=== PATIENT | female | born 1970 | race Two or more races ===

== ENCOUNTER → 2025-04-03 | Outpatient (CLI) | payer BC, SELFPAY ==
[2025-04-03 09:43] LABS: Basophils # (Auto) 0.1 Thou/mm3 (0.0-0.2); Basophils % (Auto) 1 % (0-2.5); Eosinophils # (Auto) 0.2 Thou/mm3 (0.0-0.5); Eosinophils % (Auto) 3 % (0-10); Hematocrit 42.8 % (36.0-46.0); Hemoglobin 14.0 g/dL (12.0-16.0); Immature Granulocytes Auto 0.04 Thou/mm3 (0.00-0.00); Lymphocytes # (Auto) 3.3 Thou/mm3 (1.0-4.8); Lymphocytes % (Auto) 40 % (10-50); Mean Corpuscular HGB Conc 32.7 g/dl (31.0-37.0); Mean Corpuscular Hemoglobin 28.0 pg (25.0-35.0); Mean Corpuscular Volume 86 fL (80-100); Monocytes # (Auto) 0.5 Thou/mm3 (0.0-0.8); Monocytes % (Auto) 6 % (0-12); Neutrophils # (Auto) 4.1 Thou/mm3 (1.8-7.7); Neutrophils % (Auto) 50 % (37-80); Nucleated Red Blood Cell # 0.00 Thou/mm3 (0.00-0.00); Nucleated Red Blood Cell % 0 /100 WBC (0); Platelet Count 411 Thou/mm3 (140-440); RDW Standard Deviation 41.5 fL (36.4-46.3); Red Blood Count 5.00 Miln/mm3 (4.00-5.20); White Blood Count 8.2 Thou/mm3 (3.6-11.0)
[2025-04-03 09:50] LABS: Glucose Estimated Average 137 mg/dL (80-131); Hemoglobin A1C 6.4 % Hgb (4.8-6.0)
[2025-04-03 09:53] LABS: Alanine Aminotransferase 39 U/L (10-49); Albumin, Serum 4.4 gm/dL (3.5-5.0); Albumin/Globulin Ratio 1.6 (1.2-2.2); Alkaline Phosphatase 91 U/L (46-116); Anion Gap 12 (7-16); Aspartate Amino Transferase 32 U/L (0-34); BUN/Creatinine Ratio 13 Ratio (12-20); Bilirubin,Total 0.4 mg/dL (0.3-1.2); Blood Urea Nitrogen 9 mg/dL (9-23); C-Reactive Protein 0.9 mg/dL (0.0-0.9); Calcium 9.4 mg/dL (8.3-10.6); Calcium (Corrected) 9.4 mg/dL (8.5-10.1); Carbon Dioxide 26.5 mMol/L (20.0-31.0); Cardiac Risk Estimate 3.6 RATIO (3.7-5.6); Chloride 103 mMol/L (98-107); Cholesterol 224 mg/dL (132-200); Creatinine (Component) 0.7 mg/dL (0.6-1.3); Globulin 2.7 gm/dL (2.3-3.5); Glucose 144 mg/dL (74-106); HDL Cholesterol 62 mg/dL (40-60); LDL Cholesterol,Calculated 133 mg/dL (0-130); Osmolality,Calculated 282 (275-295); Potassium 3.6 mMol/L (3.4-5.1); Sodium 141 mMol/L (136-145); Total Protein 7.1 gm/dL (5.7-8.2); Triglycerides 147 mg/dL (30-150); eGFR > 60 See Note
[2025-04-03 10:36] LABS: Sed Rate (ESR) 46 mm/hr (0-30)
[2025-04-09 06:52] LABS: ANA Screen, IFA NEGATIVE (NEGATIVE)
== END | disposition home or self-care (01) ==
LOC: COPL 08:03
PROVIDERS: PCP Internal Medicine; Referring Provider Internal Medicine; Visit Provider Internal Medicine
DX: I10 Essential (primary) hypertension (principal); E78.5 Hyperlipidemia, unspecified; E66.01 Morbid (severe) obesity due to excess calories; G47.33 Obstructive sleep apnea (adult) (pediatric); J45.909 Unspecified asthma, uncomplicated; M54.50 Low back pain, unspecified; M15.0 Primary generalized (osteo)arthritis
CPT/HCPCS: 36415; 80053; 80061; 83036; 85025; 85652; 86038; 86140

== ENCOUNTER → 2025-04-07 | Outpatient (CLI) | payer BC, SELFPAY ==
--- NOTE | 2025-04-07 | XR_ITS ---
Examination: Screening digital mammography, bilateral Computer aided detection 3-D breast Tomosynthesis, bilateral Date and time of exam: April 07, 2025, 0941 hours, compared to mammograms dating to February 09, 2015 Indication: Screening Technique: Nonmagnified MLO, CC views of the breasts to been obtained, reconstructed from 3-D Tomosynthesis images. R2 computer aided detection program utilized for evaluation of suspicious masses and/or abnormal calcifications. 3-D Tomosynthesis images obtained. Findings: Scattered areas of fibroglandular density. Intact implants No interval suspicious masses Impression: BI-RADS category II: Benign Findings. Recommend 1 year follow-up mammogram.
--- NOTE | 2025-04-07 08:26 | XR_ITS ---
Examination: Breast ultrasound complete, bilateral Date and time of exam: April 07, 2025, 0905 hours INDICATION: Breast pain several weeks, family history breast cancer Technique: Real-time grayscale ultrasonographic imaging bilateral breasts, including all 4 quadrants as well as nipple retroareolar and axillary regions. Findings: Sonographic images right breast 1:00 cyst 7 x 5 mm No solid nodules Sonographic images left breast 1:00 cyst 13 x 9 mm 3:00 cyst 10 x 4 mm No solid nodules IMPRESSION: BI-RADS Category 2: Benign findings
== END | disposition home or self-care (01) ==
PROVIDERS: PCP Internal Medicine; Referring Provider Internal Medicine; Visit Provider Internal Medicine
DX: Z12.31 Encounter for screening mammogram for malignant neoplasm of breast (principal); R92.323 Mammographic fibroglandular density, bilateral breasts; N64.4 Mastodynia; Z85.3 Personal history of malignant neoplasm of breast
CPT/HCPCS: 76641; 77063; 77067

== ENCOUNTER 2025-05-26 13:30 | Emergency (ER) | payer BC, SELFPAY ==
[2025-05-26 13:46] VITALS: BP 161/121; PULSE 125; TEMP 36.6; O2SAT 99
--- NOTE | 2025-05-26 13:49 | PD.EDHA ---
ED Headache RME/HPI General Chief Complaint: Epistaxis/Nasal Foreign Body Stated Complaint: NOSEBLEED, HEADACHE, N/V Time Seen by Provider: 05/26/25 13:52 Arrival date/time: 05/26/25 13:30 RME / HPI RME / HPI Narrative: See [facility] for Dr. Manriquez's HPI Documentation. Related Data Home Medications ?Medication ?Instructions ?Recorded ?Confirmed amlodipine 5 mg tablet 5 mg PO QDAY 09/24/21 11/22/21 albuterol 90 mcg/actuation aerosol 90 mcg inhalation BID PRN 11/10/21 11/22/21 inhaler Shortness Of Breath Or Wheezing azilsartan medoxomil 40 mg tablet 40 mg PO QDAY 11/10/21 11/22/21 (Edarbi) Previous Rx's ?Medication ?Instructions ?Recorded tamsulosin 0.4 mg capsule 0.4 mg PO QDAY #30 caps 11/11/21 tramadol 50 mg tablet 50 mg PO Q6H PRN pain #20 tabs 11/11/21 tramadol 50 mg tablet 50 mg PO Q6H PRN pain #20 tabs 11/11/21 furosemide 40 mg tablet (Lasix) 40 mg PO QAM #14 tabs 03/15/22 benzonatate 100 mg capsule 100 mg PO TID #14 caps 03/21/23 rizatriptan 10 mg disintegrating 10 mg PO Q2H PRN migraine headache 04/04/23 tablet (Maxalt-R D INTERNSHIP) #20 tabs clonidine HCl 0.1 mg tablet 0.1 mg PO BID #60 tabs 05/26/25 nitrofurantoin 100 mg PO BID #14 caps 05/26/25 monohydrate/macrocrystals 100 mg capsule (Macrobid) tramadol 50 mg tablet 50 mg PO Q8H PRN pain #20 tabs 05/26/25 Allergies Allergy/AdvReac Type Severity Reaction Status Date / Time acetaminophen Allergy Mild Itching Verified 05/26/25 13:33 honey Allergy Mild Rash Verified 05/26/25 13:33 Review of Systems Review of Systems Systems Reviewed: All systems reviewed, normal except as documented Past Medical History Past Medical History NEUROLOGIC: Positive Neurological Disorders (Vertigo) and Migraine CARDIAC: Positive Cardiac Disorders, Deep Vein Thrombosis and Hypertension RESPIRATORY: Positive Asthma GENITOURINARY: Positive Genitourinary Disorders and Kidney Stones (bilateral) MUSCULOSKELETAL: Positive Musculoskeletal Disorders HEMATOLOGIC: Positive Blood Disorders and Clotting Problems PSYCHO/SOCIAL: Positive Anxiety Family History FAMILY HISTORY: Positive Family Respiratory Disorders (mother-Asthma), Family Cardiac Disorders (father-heart problems, CHF, mother-HTN, blood disorder) and Family Surgery (father-CABG) Surgical History SURGICAL: Positive Hysterectomy ED Exam Narrative Physical exam: See [facility] for Dr. Manriquez's Physical Exam Documentation. Course Quality Measures none Orders Category Date Time Status EKG (ED ONLY) *Do not use* NOW Care 05/26/25 13:[address] head/brain wo con Stat Exams 05/26/25 13:54 Completed EKG (ED Only) Stat Exams 05/26/25 13:54 Draft XR chest 1V portable Stat Exams 05/26/25 13:54 Completed BNP [B-Type Natriuretic Peptide] Stat Lab 05/26/25 14:06 Completed Bilirubin,Direct Stat Lab 05/26/25 14:06 Completed CBC Stat Lab 05/26/25 14:06 Completed CMP [Comprehensive Metabolic Panel] Stat Lab 05/26/25 14:06 Completed D-Dimer Stat Lab 05/26/25 14:06 Completed Hemoglobin A1C [Glycohemoglobin w (eAG)] Stat Lab 05/26/25 14:06 Completed Magnesium Stat Lab 05/26/25 14:06 Completed PT [Prothrombin Time with INR] Stat Lab 05/26/25 14:06 Completed PTT [Partial Thromboplastin Time] Stat Lab 05/26/25 14:06 Completed TSH [Thyroid Stimulating Hormone] Stat Lab 05/26/25 14:06 Completed Troponin I Stat Lab 05/26/25 14:06 Completed UA, C/S IF [Urinalysis, C/S if Indicated] Stat Lab 05/26/25 17:02 Completed Urine Culture Stat Lab 05/26/25 17:02 Received Lidocaine 1% W/Epi 1:100K 20Ml [Xylocaine 1% w/Epi 1: Med 05/26/25 13:53 Discontinued 100K 20 ml] 20 ml INFL X1 ONE Metoprolol Tartrate [Lopressor] Med 05/26/25 13:53 Discontinued 50 mg PO X1 ONE Morphine* Inj Med 05/26/25 17:40 Discontinued 8 mg IM X1 ONE Nitrofurantoin Macro [Macrobid] Med 05/26/25 17:40 Discontinued 100 mg PO X1 ONE cloNIDine HCL [Catapres] Med 05/26/25 13:53 Discontinued 0.2 mg PO X1 ONE traMADol HCL [Ultram] Med 05/26/25 14:19 Discontinued 100 mg PO X1 ONE Vital Signs Vital signs: Vital Signs Temperature 97.8 F 05/26/25 13:46 Pulse Rate 125 H 05/26/25 13:46 Blood Pressure 161/121 H 05/26/25 13:46 Pulse Oximetry (%) 99 05/26/25 13:46 Oxygen Delivery Method Room Air 05/26/25 13:46 PROCEDURES: Epistaxis Control Time Out Performed: Yes Nostril: bilateral Nose Prepped With: lidocaine Direct Inspection: unable to visualize Clots Removed by: blowing nose and manually Cautery Used: none Device Inserted: other (Rapid Rhino) Patient Tolerated Procedure: No Complications Headache MDM Narrative MDM Narrative:: This section includes all my notes and documentations, including HPI, PE, and ED course. Anirudh Manriquez MD HPI: 54 y/o female with Hx of Migraine, DVT, HTN, and Anxiety here with intermittent nosebleeds and headache for the past several days. 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 With severely high BP (SBP > 200). No speech or visual impairment. No loss of power in the arms or legs. No other complaints. ROS: All negative except as documented in HPI. Physical Exam: General:? Alert and oriented.? High BP noted. High BP noted. Eyes:? Conjunctivae and lids clear.? EOMI.? PERRL. ENT: Bilateral nosebleed noted.? Pharynx normal.? Tympanic membrane normal bilaterally.??? Neck:? Supple.? No carotid bruit.? No JVD.?? Heart:? RRR.? Lungs:? No respiratory distress.? Good air movement.? No rhonchi, wheezing, rales.?? Abdomen:? Soft and nontender.? Legs:? No clubbing, cyanosis, edema.? Skin:? Warm and dry.?? Neuro:? Alert and oriented X 3.? Cranial Nerves II-XII grossly intact.? No peripheral motor deficits. Musculoskeletal:? All major joints and bones are not tender with no limited ROM.? I reviewed all diagnostic test results: My interpretation of the EKG is: Sinus rhythm (99 bpm) with nonspecific ST-T changes. My interpretation of the chest x-ray is NAD. My review of the Head/Brain CT report is NAD. Blood tests unremarkable. UA showed leukocyte esterase, 71 RBC, 440 WBC, and 1+ bacteria. At this point, diagnoses include: Hypertensive urgency Nosebleed UTI (urinary tract infection) Treatment here included: Oral metoprolol 50 mg Oral clonidine 0.2 mg Nasal packing with 7.5 Rapid Rhino each side (soaked with lidocaine with epinephrine) Macrobid 100 mg Tramadol 100 mg (pain not improved) Morphine 8 mg IM (pain improved significantly) Nosebleed stopped. Recommended more outpatient care. Based on my best medical judgment, made decision no further evaluation or treatment indicated at this time. Patient understands and agrees to the discharge instructions customized and printed, see below. Discharge Instructions from Dr. Manriquez printed for you: 1. After extensive evaluation, fortunately there is no life-threatening condition from your very high BP. Such as stroke or heart attack. 2. But we need to lower your BP to prevent future heart attacks and strokes. Take all your current BP medications. And take Clonidine 0.1 mg pill(s) every 12 hours as needed based on SBP (higher number of BP), until seen by your doctor. SBP > 140, take one pill. SBP > 160, take two pills. SBP > 180, take three pills. SBP > 200, take four pills. 3. For your severe urine infection, take Macrobid (nitrofurantoin) as prescribed. For good hydration, increase oral fluid and maintain clear urine. If dark or yellow, increase oral fluid. 4. Tramadol for severe pain. 5. Avoid removing your nasal packings on your own. 6. See a private doctor on 05/28/2025 for recheck. Ask to remove the nasal packings (10 mL of air need to be aspirated from each side before removal). Ask to review all test results and official radiology reports, to make sure you receive all necessary follow-ups and monitoring, including final urine culture results. You may need to take longer course of Macrobid or need to be changed to another antibiotic. Ask for help with good management of your BP. 7. Seek immediate medical care with worsening or with any concerns. Anirudh Manriquez MD Patient data External records reviewed:: [facility] previous records (Reviewed prior ED records from 04/05/23. Patient was seen for Nephrolithiasis.) Clinical information provided by:: patient Social determinants that could affect healthcare access:: mental health (Anxiety) Patient has the following chronic illnesses:: Migraine, Deep Vein Thrombosis, Hypertension, Asthma, Kidney Stones, Clotting Problems, Anxiety How is presenting disease/condition affected by chronic disease/condition?: exacerbated by Evaluation data The following diagnostics were reviewed and interpreted by me:: lab results, radiology exam(s) and EKG tracing(s) (My interpretation of the EKG is: Sinus rhythm (99 bpm) with nonspecific ST-T changes. Anirudh Manriquez MD) Lab and/or radiology exams considered but not ordered:: None Interpretation Summary: I reviewed all diagnostic test results: My interpretation of the EKG is: Sinus rhythm (99 bpm) with nonspecific ST-T changes. My interpretation of the chest x-ray is NAD. My review of the Head/Brain CT report is NAD. Blood tests unremarkable. UA showed leukocyte esterase, 71 RBC, 440 WBC, and 1+ bacteria. Medications / Prescriptions Medications or Prescriptions considered but not ordered:: None Medication administrations:: Medication Administration History Discontinued Medications Clonidine (Clonidine Hcl 0.1 Mg Tablet) 0.2 mg PO X1 ONE Stop: 05/26/25 13:54 Last Admin: 05/26/25 14:03 Dose: 0.2 mg Documented By: OA Lidocaine/Epinephrine (Lidocaine 1% W/Epi 1:100k 20 Ml Vial) 20 ml INFL X1 ONE Stop: 05/26/25 13:54 Last Admin: 05/26/25 14:03 Dose: 20 ml Documented By: OA Metoprolol Tartrate (Metoprolol Tartrate 25 Mg Tablet) 50 mg PO X1 ONE Stop: 05/26/25 13:54 Last Admin: 05/26/25 14:03 Dose: 50 mg Documented By: OA Morphine Sulfate (Morphine Sulf Inj 4 Mg/Ml Vial) 8 mg IM X1 ONE Stop: 05/26/25 17:41 Last Admin: 05/26/25 17:54 Dose: 8 mg Documented By: SF Nitrofurantoin Macrocrystals (Nitrofurantoin Macro 100 Mg Capsule) 100 mg PO X1 ONE Stop: 05/26/25 17:41 Last Admin: 05/26/25 17:54 Dose: 100 mg Documented By: SF Tramadol HCl (Tramadol Hcl 50 Mg Tablet) 100 mg PO X1 ONE Stop: 05/26/25 14:20 Last Admin: 05/26/25 14:27 Dose: 100 mg Documented By: OA Treatment here included: Oral metoprolol 50 mg Oral clonidine 0.2 mg Nasal packing with 7.5 Rapid Rhino each side (soaked with lidocaine with epinephrine) Macrobid 100 mg Tramadol 100 mg (pain not improved) Morphine 8 mg IM (pain improved significantly) Consultations Consultation(s) initiated? (list below): No Diagnosis Differential diagnosis headache: migraine, tension headache, subarachnoid hemorrhage, headache, meningitis and sinusitis Most likely diagnosis given after review of the tests above:: Hypertensive urgency Nosebleed UTI (urinary tract infection) Admission Indicated Admission indicated?: not indicated Explain why admission is indicated or not indicated:: With significant improvement and no condition needing emergent intervention, there was no indication for admission. Admission Request Was there a request for admission?: No Disposition Plan Disposition Plan: Discharge Discharge Attestation Discharge Attestation: The patient and all family members were given an opportunity to ask questions and understood the discharge instructions. Discharge instructions specifically effects, indications for sooner follow up or return to the emergency department, and the expected course of current diagnosis. Patient condition: Stable Discharge Plan Plan Patient Disposition: HOME (Self Care) Prescriptions/Referrals Prescriptions/Med Rec: New clonidine HCl 0.1 mg tablet 0.1 mg PO BID Qty: 60 0RF tramadol 50 mg tablet 50 mg PO Q8H PRN (Reason: pain) Qty: 20 0RF nitrofurantoin monohyd/m-cryst [Macrobid] 100 mg capsule 100 mg PO BID Qty: 14 0RF Rx Instructions: must administer with a meal/food No Action amlodipine 5 mg tablet 5 mg PO QDAY tobramycin sulfate 40 mg/mL solution 160 mg IM .once Qty: 2 0RF Edarbi 40 mg tablet 40 mg PO QDAY albuterol 90 mcg/actuation Aerosol 90 mcg INHALATION BID PRN (Reason: Shortness Of Breath Or Wheezing) tamsulosin 0.4 mg capsule 0.4 mg PO QDAY Qty: 30 0RF tramadol 50 mg tablet 50 mg PO Q6H PRN (Reason: pain) Qty: 20 0RF tramadol 50 mg tablet 50 mg PO Q6H PRN (Reason: pain) Qty: 20 0RF furosemide [Lasix] 40 mg tablet 40 mg PO QAM Qty: 14 0RF benzonatate 100 mg capsule 100 mg PO TID Qty: 14 0RF rizatriptan [Maxalt-R D INTERNSHIP] 10 mg tablet,disintegrating 10 mg PO Q2H PRN (Reason: migraine headache) Qty: 20 0RF Rx Instructions: do not exceed 3 doses per 24 hrs Referrals: No Primary/Family,Physician [Primary Care Provider] - In 1 week Problem List Clinical Impression: Hypertensive urgency, Nosebleed, UTI (urinary tract infection) Patient/Caregiver Discharge Instructions Discharge Activity: activity as tolerated Education Materials: ED Epistaxis (Adult), ED Hypertension, Established, ED CYSTITIS Female Adult Additional Instructions: Discharge Instructions from Dr. Manriquez printed for you: 1. After extensive evaluation, fortunately there is no life-threatening condition from your very high BP. Such as stroke or heart attack. 2. But we need to lower your BP to prevent future heart attacks and strokes. Take all your current BP medications. And take Clonidine 0.1 mg pill(s) every 12 hours as needed based on SBP (higher number of BP), until seen by your doctor. SBP > 140, take one pill. SBP > 160, take two pills. SBP > 180, take three pills. SBP > 200, take four pills. 3. For your severe urine infection, take Macrobid (nitrofurantoin) as prescribed. For good hydration, increase oral fluid and maintain clear urine. If dark or yellow, increase oral fluid. 4. Tramadol for severe pain. 5. Avoid removing your nasal packings on your own. 6. See a private doctor on 05/28/2025 for recheck. Ask to remove the nasal packings (10 mL of air need to be aspirated from each side before removal). Ask to review all test results and official radiology reports, to make sure you receive all necessary follow-ups and monitoring, including final urine culture results. You may need to take longer course of Macrobid or need to be changed to another antibiotic. Ask for help with good management of your BP. 7. Seek immediate medical care with worsening or with any concerns. Print Language: Spanish Stand Alone Forms: Shelley Award Info., Work/School Release, Patient Portal Info Letter
--- NOTE | 2025-05-26 13:54 | XR_ITS ---
Upright PA chest film on 05/26/2025 at 2:20 p.m. INDICATION: Shortness of breath, nasal bleeding, dizziness for 2 days COMPARISON: Portable chest film on 04/04/2023 FINDINGS: As noted on the previous portable chest film, today's film also has been taken in very poor inspiration with high position of the diaphragm and low lung volumes. Allowing for this, both lungs are well seen and clear and normal no pleural fluid is seen. Allowing for the poor degree of inspiration, heart size is felt to be normal. There are prominent degenerative osteophytes along the right lateral margin of most all dorsal vertebra. No abnormalities are seen in the visible bony thorax. IMPRESSION: 1. Suboptimal inspiration, identical to the degree of inspiration on the previous comparison film 2 portable chest film otherwise negative, see above
--- NOTE | 2025-05-26 13:54 | EKG_ITS ---
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1970 Requested By: Anirudh Thompson Order Number: [id number] Reading MD: Anirudh Thompson Measurements Intervals [place] Rate: 99 P: 27 VT: 149 QRS: -77 QRSD: 93 T: 30 QT: 356 QTc: 457 Interpretive Statements SINUS RHYTHM INDETERMINATE AXIS LOW QRS VOLTAGE IN PRECORDIAL LEADS [QRS DEFLECTION < 1.0 mV IN CHEST LEADS] INCOMPLETE RIGHT BUNDLE BRANCH BLOCK [90+ ms QRS DURATION, TERMINAL R IN V1/V2, 40+ ms S IN I/aVL/V4/V5/V6] LEFT ANTERIOR FASCICULAR BLOCK [QRS AXIS <= -45, QR IN I, RS IN II] POSSIBLE ANTERIOR MYOCARDIAL INFARCTION , PROBABLY OLD [30 ms Q WAVE IN V3/V4, OR R < 0.2 mV IN V4] Compared to ECG 04/05/2023 13:57:02 Indeterminate axis now present Low QRS voltage now present Incomplete right bundle-branch block now present Left anterior fascicular block now present Left-axis deviation no longer present Myocardial infarct finding still present /store/S0/[id number]/ecg/[id number].pdf
--- NOTE | 2025-05-26 13:54 | XR_ITS ---
Examination: CT brain head without contrast. 2-D sagittal coronal reconstructions Date and time of exam: 05/26/2025 at 5:07 p.m. CTDI: vol (mGy): 58.1 DLP: (mGycm): 1128 Technique: Multiple CT axial sections of the brain have been obtained, 5 mm slice thickness. Contrast has not been administered. 2-D sagittal, coronal reconstructions have been obtained Low dose protocols were performed. One or more of the following dose reduction techniques were used; automated exposure control, adjustment of the mA and/or KV according to patient size, use of iterative reconstruction technique. INDICATION: Headaches with nosebleeds today Findings: No significant ventricular enlargement. Intra-axial or extra-axial hemorrhage density is not seen. No mass effect or midline shift Basal cisterns are not remarkable. Fourth ventricle is midline. Cranial vault intact. There is a small definite air-fluid level seen posteriorly in the right maxillary sinus. There is a tiny mucosal polyp seen posteriorly in the left maxillary sinus all of the other paranasal sinuses and mastoids are clear and normal Impression: 1. Small dependent fluid level seen posteriorly in the right maxillary sinus, and very tiny mucosal polyp seen posteriorly in the left maxillary sinus. 2. Otherwise, negative for acute hemorrhage, mass effect or midline shift
[2025-05-26 14:03] VITALS: BP 161/121; PULSE 125
[2025-05-26] MEDS: LIDOCAINE 1% W/EPI 1:100K 20 ML VIAL INFL (14:03)
[2025-05-26] MEDS: METOPROLOL TARTRATE 25 MG TABLET 50 MG PO (14:03)
[2025-05-26 14:22] LABS: Basophils # (Auto) 0.1 Thou/mm3 (0.0-0.2); Basophils % (Auto) 1 % (0-2.5); Eosinophils # (Auto) 0.2 Thou/mm3 (0.0-0.5); Eosinophils % (Auto) 2 % (0-10); Hematocrit 45.4 % (36.0-46.0); Hemoglobin 14.3 g/dL (12.0-16.0); Immature Granulocytes Auto 0.03 Thou/mm3 (0.00-0.00); Lymphocytes # (Auto) 4.1 Thou/mm3 (1.0-4.8); Lymphocytes % (Auto) 42 % (10-50); Mean Corpuscular HGB Conc 31.5 g/dl (31.0-37.0); Mean Corpuscular Hemoglobin 27.0 pg (25.0-35.0); Mean Corpuscular Volume 86 fL (80-100); Monocytes # (Auto) 0.7 Thou/mm3 (0.0-0.8); Monocytes % (Auto) 7 % (0-12); Neutrophils # (Auto) 4.6 Thou/mm3 (1.8-7.7); Neutrophils % (Auto) 47 % (37-80); Nucleated Red Blood Cell # 0.00 Thou/mm3 (0.00-0.00); Nucleated Red Blood Cell % 0 /100 WBC (0); Platelet Count 422 Thou/mm3 (140-440); RDW Standard Deviation 40.4 fL (36.4-46.3); Red Blood Count 5.30 Miln/mm3 (4.00-5.20); White Blood Count 9.7 Thou/mm3 (3.6-11.0)
[2025-05-26 14:35] LABS: INR 0.9 (0.9-1.3); Partial Thromboplastin Time 27.8 Seconds (22.0-36.0); Prothrombin Time 10.1 Seconds (9.0-12.2)
[2025-05-26 14:37] LABS: B-Type Natriuretic Peptide < 20 pg/mL (0-100)
[2025-05-26 14:39] LABS: Glucose Estimated Average 137 mg/dL (80-131); Hemoglobin A1C 6.4 % Hgb (4.8-6.0)
[2025-05-26 14:45] LABS: Alanine Aminotransferase 40 U/L (10-49); Albumin, Serum 4.8 gm/dL (3.5-5.0); Albumin/Globulin Ratio 1.7 (1.2-2.2); Alkaline Phosphatase 105 U/L (46-116); Anion Gap 12 (7-16); Aspartate Amino Transferase 26 U/L (0-34); BUN/Creatinine Ratio 12 Ratio (12-20); Bilirubin,Direct < 0.1 mg/dL (0.0-0.3); Bilirubin,Total 0.3 mg/dL (0.3-1.2); Blood Urea Nitrogen 7 mg/dL (9-23); Calcium 9.5 mg/dL (8.3-10.6); Calcium (Corrected) 9.5 mg/dL (8.5-10.1); Carbon Dioxide 24.6 mMol/L (20.0-31.0); Chloride 104 mMol/L (98-107); Creatinine (Component) 0.6 mg/dL (0.6-1.3); Globulin 2.9 gm/dL (2.3-3.5); Glucose 106 mg/dL (74-106); Magnesium 1.8 mg/dL (1.6-2.6); Osmolality,Calculated 279 (275-295); Potassium 3.4 mMol/L (3.4-5.1); Sodium 141 mMol/L (136-145); Thyroid Stimulating Hormone 1.00 uIU/mL (0.55-4.78); Total Protein 7.7 gm/dL (5.7-8.2); Troponin I < 0.002 ng/mL (0.0-0.045); eGFR > 60 See Note
[2025-05-26 14:58] LABS: D-Dimer < 250 ng/mL (<600)
[2025-05-26 17:15] LABS: Collection Type, Urine Clean Catch
[2025-05-26 17:30] LABS: Bacteria,Urine 1+; Bilirubin,Urine Negative (Negative); Blood,Urine 2+ (Negative); Clarity,Urine Turbid (Clear/Hazy); Color,Urine Yellow (Lt Yel-Yel); Glucose, Urine Negative (Negative); Ketones,Urine Negative (Negative); Leukocyte Esterase,Urine Positive (Negative); Nitrite,Urine Negative (Negative); PH,Urine 6.0 (5.0-7.0); Protein,Urine 1+ (Neg - Trace); RBC,Urine 71 /hpf (0-3); Specific Gravity,Urine 1.016 (1.001-1.035); Squamous Epithelial Cell,Urine 4 /hpf (0-5); Urobilinogen,Urine Negative mg/dL (0.0-1.0); WBC,Urine 440 /hpf (0-5)
[2025-05-26 17:31] LABS: Culture Indicated,Urine Yes
[2025-05-26 17:39] VITALS: BP 156/87
[2025-05-26] MEDS: MORPHINE SULF INJ 4 MG/ML VIAL 8 MG IM (17:54)
[2025-05-26] MEDS: NITROFURANTOIN MACRO 100 MG CAPSULE PO (17:54)
== END 2025-05-26 18:04 | disposition home or self-care (01) ==
PROVIDERS: Emergency Provider Emergency Medicine
DX: R04.0 Epistaxis (principal); I16.0 Hypertensive urgency; N39.0 Urinary tract infection, site not specified; R06.02 Shortness of breath; I10 Essential (primary) hypertension; I45.10 Unspecified right bundle-branch block; I44.4 Left anterior fascicular block
CPT/HCPCS: 30901; 36415; 70450; 71045; 80053; 81001; 82248; 83036; 83735; 83880; 84443; 84484; 85025; 85379; 85610; 85730; 87077; 87086; 87186; 93005; 96372; 99284; J2270; J3490; A9270